=== PATIENT | female | born 1980 | race Caucasian/White ===

== ENCOUNTER 2018-04-02 11:31 | Emergency (ER) | payer SELFPAY ==
[~2018-04-02] VITALS: Ht 167.6 cm; Wt 59.0 kg
[2018-04-02 11:37] VITALS: BP 137/101
== END 2018-04-02 19:45 | disposition left against medical advice (07) ==
LOC: ER 11:46
DX: Z53.21 Procedure and treatment not carried out due to patient leaving prior to being seen by health care provider (principal)